=== PATIENT | female | born 1955 | race Caucasian/White ===

== ENCOUNTER → 2020-07-14 | Outpatient (CLI) | payer OTHER ==
[~2020-07-14] MED LIST: ALLERGY RELIEF180 MG PO; ASA81BEC PO; BUSPIRONE HCL15 MG PO; LOPRESSOR50 MG PO; MUCINEX600 MG PO; REMERON 30 MG T30 M1 PO; SIMVASTATIN80 MG PO; SYNTHROID125 MC1 PO; VENLAFAXINE HCL75 M1 PO
== END ==
LOC: SJCVCIMAG 09:21
PROVIDERS: ATTEND Internal Medicine Cardiovascular Disease
DX: R06.00 Dyspnea, unspecified (principal); I25.10 Atherosclerotic heart disease of native coronary artery without angina pectoris

== ENCOUNTER → 2020-07-18 | Outpatient (CLI) | payer OTHER ==
[~2020-07-18] VITALS: Ht 162.6 cm; Wt 113.4 kg
[2020-07-18 10:10] VITALS: BP 170/86
--- NOTE | 2020-07-18 13:19 | NUR ---
O2 SAT 88-89 WHEN ASLEEP. PLACED ON 2L O2 NC.
--- NOTE | 2020-07-18 14:47 | NUR ---
PT 2 HRS BEDREST OVER. SAT MORE UP IN BED, MOVING LEGS. WILL CONTINUE TO MONITOR GROIN SITE.
--- NOTE | 2020-07-18 15:25 | CATHLAB ---
[facility] [place] [address] INVASIVE PROCEDURE REPORT Name: GIOVANI NOGUERA Room #: REG CAMRYN SmithBenny#: [id number] Admission: 07/18/20 Attend Phys: Jamil Wolfe MD Discharge: Date of : 57 Report #: [id number] THIS REPORT FOR: cc: FAM - Family physician unknown NO FAMILY PHYSICIAN or PCP Jamil Wolfe MD ~ APPROVED REPORT Study performed: 07/18/2020 11:25:20 Patient Details Patient Status: Out-Patient Room #: The patient is a 64 year-old female Event Personnel Jamil Wolfe Manager Marketing Sales, Kalpana Nascimento RN RN, Ana Washburn RTR Ivana Ann Ja'net RTR Monitor Procedures Performed Left Heart Cath w/or w/o Coronaries [id number] [facility] Art Access - R femoral artery* 61177 Initial Mod Sed Same Phys/QHP Gr5y 273602 12160 Mod Sed Same Phys/QHP Ea 710480 Hemostasis with Manual pressure Indication Dyspnea, Positive stress test Risk Factors HypercholesterolemiaPhysical Activity, Coronary Artery DiseaseHypertension Previous Procedures/Diagnoses Previous PCI Procedure Narrative The patient was brought electively to the Cardiac Catheterization Laboratory and was prepped and draped in a sterile manner. The Right Groin^ was infiltrated with 1% Lidocaine subcutaneous anesthesia. A PINNACLE 4FR Sheath #[id number] sheath was inserted into the RFA^. Coronary angiography was performed using coronary diagnostic catheters. The right coronary system was accessed and visualized with a 4FR JR4 catheter. The left coronary system was accessed and visualized with a 4FR JL 5.0 #[id number] catheter. The left ventricle was accessed and visualized with a 4FR JR4 catheter. Left [facility] [address] [place] [address] INVASIVE PROCEDURE REPORT Name: GIOVANI NOGUERA Room #: REG [facility]#: [id number] Admission: 07/18/20 Attend Phys: Jamil Wolfe MD Discharge: Date of : 57 Report #: [id number] ventricular/Aortic Valve gradient assessed via catheter pullback. Left ventriculogram was performed in 30 degree projection. Hemostasis was obtained with manual pressure following sheath removal without any complications. The patient tolerated the procedure well and there were no complications associated with the procedure. There was no hematoma. Intraoperative Conscious Sedation Sedation start time: 12:04 Case end Time: 12:42 Fentanyl 100 mcg Versed 2 mg Fluoro Time: 2.50 minutes Dose: DAP 9795.70 cGycm2 1478 mGy Contrast Type and Amount: Omnipaque 130 ml Coronary Angiography The patient's coronary anatomy is right dominant. Diagnostic Cath Left Main The left main artery is a large-caliber vessel, appears angiographically normal. LAD The LAD is a moderate-sized caliber vessel with patent stents in the proximal and mid segments. Just before the proximal stent, there is a mild to moderate stenosis, 30 to 40%. The distal LAD wraps around the apex. Diagonal 1 This vessel originates from the mid segment of the LAD, patent with no flow-limiting lesions. Circumflex The left circumflex arteries a moderate-sized caliber vessel, supplies 3 OM vessels. OM1 This vessel has a high takeoff from the left circumflex artery. There is mild disease in the proximal segment. OM2 This is a moderate-sized caliber vessel with a borderline stenosis in the proximal segment, 60%. OM3 This is a small to moderate-sized caliber vessel, patent with no flow-limiting lesions. Right Coronary The RCA is a dominant vessel with at least moderate calcification in the proximal and mid segments. There are severe occlusions in the proximal mid segments, 80%. R PDA This is a moderate-sized caliber vessel, patent with no flow-limiting lesions. RPLV This is a moderate-sized caliber vessel, patent with no flow-limiting lesions. Left Ventriculography Left Ventriculography was not performed. Ejection Fraction was [address] [address] INVASIVE PROCEDURE REPORT Name: GIOVANI NOGUERA Room #: REG M.Amna.#: [id number] Admission: 07/18/20 Attend Phys: Jamil Wolfe MD Discharge: Date of : 57 Report #: [id number] >55% based off patient's Echocardiogram. An LVEDP was measured and there is no gradient across the outflow tract. Hemodynamics The aortic pressure is 150/79 mmHg with a mean of 109 mmHg. The left ventricular pressure is 153/8 mmHg with a mean of mmHg. The left ventricular end diastolic pressure is 30 mmHg. Pullback from the left ventricle to the aorta revealed no gradient across the aortic valve. Conclusion 1. There are patent stents in the LAD with mild restenosis. 2. There are severe, calcified stenoses in the RCA. Recommend staged PCI involving rotational atherectomy and stent placement. 3. There is a borderline stenosis in the second obtuse marginal artery, recommend medical therapy. 4. Recommend risk factor management and staged PCI. <ELECTRONICALLY SIGNED> By: Jamil Wolfe MD 07/18/20 1525 1525 1525 Jamil Wolfe MD /INF
== END | disposition home or self-care (01) ==
LOC: CATH 07:18
PROVIDERS: ATTEND Internal Medicine Cardiovascular Disease
DX: R94.39 Abnormal result of other cardiovascular function study (principal); R06.00 Dyspnea, unspecified; I25.10 Atherosclerotic heart disease of native coronary artery without angina pectoris; T82.855A Stenosis of coronary artery stent, initial encounter; I25.2 Old myocardial infarction; I10 Essential (primary) hypertension; E78.00 Pure hypercholesterolemia, unspecified; F17.210 Nicotine dependence, cigarettes, uncomplicated; Z98.890 Other specified postprocedural states; Z79.899 Other long term (current) drug therapy; Z79.82 Long term (current) use of aspirin; Y83.8 Other surgical procedures as the cause of abnormal reaction of the patient, or of later complication, without mention of misadventure at the time of the procedure

== ENCOUNTER 2020-09-13 09:31 | Inpatient (IN) | payer OTHER ==
[~2020-09-13] VITALS: Ht 162.6 cm; Wt 124.2 kg
[2020-09-13] VITALS (12 sets, daily range): BP systolic 128–179; BP diastolic 58–90
[2020-09-13] MEDS ORDERED: ASA81BEC PO (10:04)
[2020-09-13] MEDS ORDERED: BUSPIRONE HCL15 MG PO (10:05)
[2020-09-13] MEDS ORDERED: ALLERGY RELIEF180 MG PO (10:05)
[2020-09-13] MEDS ORDERED: SYNTHROID125 MC1 PO (10:06)
[2020-09-13] MEDS ORDERED: REMERON 30 MG T30 M1 PO (10:07)
[2020-09-13] MEDS ORDERED: LOPRESSOR50 MG PO (10:07)
[2020-09-13] MEDS ORDERED: EFFIENT10 MG PO (10:07)
[2020-09-13] MEDS ORDERED: VENLAFAXINE HCL75 M2 PO (10:08)
[2020-09-13] MEDS ORDERED: SIMVASTATIN40 MG PO (10:08)
--- NOTE | 2020-09-13 17:29 | CATHLAB ---
[facility] [place] [address] INVASIVE PROCEDURE REPORT Name: GIOVANI NOGUERA Room #: ROXANA Smith.#: [id number] Admission: 09/13/20 Attend Phys: Jamil Wolfe MD Discharge: Date of : 57 Report #: [id number] THIS REPORT FOR: cc: FAM - Family physician unknown NO FAMILY PHYSICIAN or PCP Jamil Wolfe MD ~ APPROVED REPORT Study performed: 09/13/2020 13:14:47 Patient Details Patient Status: Out-Patient Room #: The patient is a 65 year-old female Event Personnel Jamil Wolfe Patrol Agent, Ana Washburn RTR Monitor, [place] Eastman RTR, Daniele Bobo Jessica RN weatherization technician Performed Art Access - R femoral artery* 85806 Initial Mod Sed Same Phys/QHP Gr5y 407176 98579 Mod Sed Same Phys/QHP Ea 858679 Temporary Pacemaker Lead Inserted 0157230 TPI MARIBEL Place w/wo Plasty Single RCA 253663 Atherectomy w/wo Plasty Sgl RCA 1955240 ATHSINGLE Hemostasis w/ Mynx Indication Dyspnea, Positive stress test, The patient had a previous cardiac catheterization performed on July 18, 2020 revealing patent stents in the LAD. There are severe, calcified lesions in the proximal and mid segments of the RCA. She now returns for a staged PCI procedure involving rotational atherectomy and stent placement. Risk Factors Obesity, HypercholesterolemiaPhysical Activity, Coronary Artery DiseaseHypertension Previous Procedures/Diagnoses Previous PCI Procedure Narrative The Right Groin^ was infiltrated with 1% Lidocaine subcutaneous anesthesia. A PINNACLE 7FR Sheath #[id number] sheath was inserted into the RFA^. Coronary angiography was performed using coronary diagnostic catheters. Closure device was deployed with a Fr MYNXGRIP [facility] [address] [place] [address] INVASIVE PROCEDURE REPORT Name: GIOVANI NOGUERA Room #: REG [facility]#: [id number] Admission: 09/13/20 Attend Phys: Jamil Wolfe MD Discharge: Date of : 57 Report #: [id number] 6/7F #[id number]. The patient tolerated the procedure well and there were no complications associated with the procedure. There was no hematoma. Intraoperative Conscious Sedation Sedation start time: 13:50 Case end Time: 16:16 Fentanyl 200 mcg Versed 4.0 mg Fluoro Time: 56.00 minutes Dose: DAP 50659.30 cGycm2 15588 mGy Contrast Type and Amount: Omnipaque 325 ml Coronary Angiography The patient's coronary anatomy is right dominant. Diagnostic Cath Right Coronary There are severe, calcified lesions in the proximal mid segments of the RCA, 80 to 90%. Hemodynamics The aortic pressure is 154/74 mmHg with a mean of 105 mmHg. PCI Technique Lesion Percutaneous coronary intervention was performed on the Mid right coronary artery. The lesion stenosis prior to intervention was 90% with FLORIN 3 flow. A LAUNCHER 6FR AL75 #[id number] Guide Catheter was used to engage the ostium. A Luge Wire .014 x 182CM #[id number] Interventional Guidewire was used to cross the lesion. BALLOON DILATION A Balloon catheter MINI TREK OTW 2.0 X 12 #[id number] was inserted and inflated up to 14.00atm for 16seconds. Additional Inflation: 14.00atm for 11seconds. Additional Inflation: 14.00atm for 10seconds. An NC TREK 2.50mm x 15mm balloon was inserted and inflated 14 sujatha for 18 seconds. An NC TREK 2.50 x 15mm balloon was inserted and inflated 24 sujatha for 33 seconds. 16 sujatha for 18 seconds. 22 sujatha for 35 seconds. 20 sujatha for 19 seconds. 20 sujatha for 14 seconds. An NC TREK 2.75 x 12mm balloon was inserted and inflated 18 sujatha for 18 seconds. 22 sujatha for 30 seconds. 18 sujatha for 12 seconds. 18 sujatha for 12 seconds. 24 sujatha for 32 seconds. 24 sujatha for 37 seconds. STENT DEPLOYMENT A drug-eluting stent RESOLUTE MAURICE RX 3.0 X 15 #[id number] was inserted and inflated up to 18atm for 34seconds. A drug-eluting stent RESOLUTE MAURICE RX 3.0 x 22 was inserted and inflated up to 18 sujatha for [address] [address] INVASIVE PROCEDURE REPORT Name: GIOVANI NOGUERA Room #: REG AG Rich#: [id number] Admission: 09/13/20 Attend Phys: Jamil Wolfe MD Discharge: Date of : 57 Report #: [id number]. POST STENT DEPLOYMENT BALLOON DILATION A Balloon catheter TREK NC RX 3.0 X 15 #[id number] was inserted and inflated up to 22atm for 40seconds. Additional Inflation: 18atm for 20seconds. Additional Inflation: 22atm for 40seconds. An NC TREK 3.50 x 15 RX was inserted and inflated up to 22 sujatha for 47 seconds. Final angiography reveals 45 % stenosis with FLORIN 3 flow. COMMENTS A ROTAPRO 1.50 AFTAB rotablator was inserted and used approximately 10 passes. A 6 Occitan temporary pacing wire was placed through the right femoral vein into the right ventricle. The Rotablator was successfully passed through the proximal lesion and was able to pass into the mid lesion. However, it could not completely rotoblade the second portion of this mid segment stenosis of the RCA. During the PCI portion, a wilfredo wire had to be used to pass the balloon and stents into the affected area. PCI Technique Lesion 2 Percutaneous coronary intervention was performed on the proximal right coronary artery. The lesion stenosis prior to intervention was 80% with FLORIN 3 flow. A LAUNCHER 6FR AL75 #325251 Guide Catheter was used to engage the RCA ostium. Stent Deployment A drug-eluting stent 3.0 x 22mm Resolute was inserted and inflated up to 16atm for 14seconds. Post Stent Deployment Balloon Dilation A Balloon catheter TREK NC RX 3.25 X 15 #[id number] was inserted and inflated up to 18atm for 16seconds. Final angiography reveals 0 % stenosis with FLORIN 3 flow. Comments Prior to any balloon dilatation, rotational atherectomy was performed with a 1.5 mm aftab. This was successfully used in the proximal RCA lesion. Followed by incremental balloon dilatation with a 2.25, 2.5 and 2.75 mm balloons. Conclusion 1. Successful PCI involving rotational atherectomy and placement of a drug-eluting stent into the proximal RCA stenosis. [facility] [address] [place] [address] INVASIVE PROCEDURE REPORT Name: GIOVANI NOGUERA Room #: REG Luis#: [id number] Admission: 09/13/20 Attend Phys: Jamil Wolfe MD Discharge: Date of : 57 Report #: [id number] 2. PCI involving rotational atherectomy and placement of a drug-eluting stent into the mid RCA stenosis. There is a moderate residual stenosis within the stented area. Consider laser atherectomy versus surgery. 3. Recommend dual antiplatelet therapy and aggressive risk factor management. <ELECTRONICALLY SIGNED> By: Jamil Wolfe MD 09/13/201728 28 28 Jamil Wolfe MD /INF
--- NOTE | 2020-09-13 18:41 | NUR ---
PT ADMIT TO ICU AT 1800 FROM [facility]. PT WITH RIGHT FEMORAL SHEATH IN PLACE. READY TO PULL AT 1800. PLAN TO GO BACK TO [facility] TOMORROW. PT AFEBRILE, ADEQUATE UOP, NO BM. PT WAITING TO EAT UNTIL SHEATH OUT. PT HAS BEEN THOUROUGHLY UPDATED AND EDUCATED ON BODY POSITIONING OVER THE NEXT 12 HOURS. SHE IS COMPLIENT WITH THESE ORDERS. PT UPDATED AND EDUCATED ON CONDITION AND POC. PT FEMORAL DRESSING C/D/I.
--- NOTE | 2020-09-13 20:14 | NUR ---
This RN pulled the femoral sheath at 1920. Held pressure for 20 minutes and hemostasis was acheived at 1940. Gauze placed to site and transparent dressing. Continueing to check every 15 minutes now. No hematoma present, no bleeding. Pulses intact. Will continue to monitor.
[2020-09-14] VITALS (15 sets, daily range): BP systolic 103–159; BP diastolic 46–104
--- NOTE | 2020-09-14 07:12 | EKG ---
[address] [employer] [place] [address] ELECTROCARDIOGRAM REPORT Name: ROMEO NOGUERAKI Room #: 245-P ADM IN M.R.#: [id number] Admission: 09/13/20 Attend Phys: Jamil Wolfe MD Discharge: Date of : 57 Report #: [id number] [facility] Test Date: 2020-09-13 Test Time: 18:13:12 Pat Name: GIOVANI NOGUERA Department: Room: 245 Gender: F Etl [employer]form[employer] Architect: [id number] : 1955 Requested By: Jamil Wolfe Order Number: [id number] : Gen Hoffman Measurements Intervals [place] Rate: 62 P: 32 OK: 191 QRS: 45 QRSD: 102 T: 46 QT: 469 QTc: 477 Interpretive Statements Sinus rhythm Probable inferior infarct, old Baseline wander in lead(s) V6 No previous ECG available for comparison Electronically Signed On 09-14-2020 7:11:59 CDT by Gen Hoffman [email or web address] <ELECTRONICALLY SIGNED> By: Gen Hoffman MD, [facility] 09/14/20 0711 181 1813 Gen Hoffman MD, FACC /EPI
--- NOTE | 2020-09-14 08:00 | NUR ---
remains npo for return to sleep lab technician today per Dr. Wolfe. Am meds on hold. denies any cardiac signs/symptoms. up to bathroom with standby assist related to wires/monitor.
[2020-09-14 09:30] LABS: HEMATOCRIT 39.2 % (37.0-47.0); HEMOGLOBIN 13.1 gm/dL (12.0-15.0); MCH 33.2 pg (26.0-34.0); MCHC 33.4 g/dL (28.0-37.0); MCV 99.3 fL (80.0-100.0); RBC 3.95 mil/uL (4.20-5.00); RDW 16.4 % (10.5-14.5); WBC 6.4 thou/uL (4.0-11.0)
[2020-09-14 09:40] LABS: CALCIUM 8.4 mg/dL (8.5-10.1); CREATININE 1.1 mg/dL (0.6-1.0); POTASSIUM 4.8 mmol/L (3.5-5.1); TROPONIN-I 0.19 ng/mL (<0.06)
--- NOTE | 2020-09-14 12:05 | NUR ---
to cardiac cathode ray tube salvage processor with cathode ray tube salvage processor crew.
--- NOTE | 2020-09-14 14:54 | CATHLAB ---
[facility] [address] [place] [address] INVASIVE PROCEDURE REPORT Name: GIOVANI NOGUERA Room #: 245-P ADM IN M.R.#: [id number] Admission: 09/13/20 Attend Phys: Jamil Wolfe MD Discharge: Date of : 57 Report #: [id number] THIS REPORT FOR: cc: FAM - Family physician unknown FAM - Family physician unknown Jamil Wolfe MD ~ APPROVED REPORT Study performed: 09/14/2020 12:02:19 Patient Details Patient Status: In-Patient Room #: 245 The patient is a 65 year-old female Event Personnel Jamil Wolfe Graphic Coordinator, Paola Sanabria RN RN, [place] Eastman RTR, NANETTE Ann, Nick Guzmán RTR Monitor Procedures Performed Art Access - L femoral artery* Atherectomy w/wo Plasty Sgl RCA 0700020 ATHSINGLE PTCA Single Vessel RCA 9704807 PCISINGLE Hemostasis w/ Mynx 67103 Initial Mod Sed Same Phys/QHP Gr5y 469099 59903 Mod Sed Same Phys/QHP Ea 676209 Indication Dyspnea, Positive stress test, On September 13, 2020, the patient underwent a staged PCI procedure involving rotational atherectomy of 2 severe, calcified lesions in the proximal and mid segments of the LAD. 2 stents were placed within this region. However, within the mid RCA stent, there was a residual stenosis of at least 50-60%, the stent could not be fully dilated. Please see the cardiac cath report for full details. The patient returns today for laser atherectomy of this mid RCA segment. Risk Factors Obesity, HypercholesterolemiaPhysical Activity, Coronary Artery DiseaseHypertension Previous Procedures/Diagnoses Previous PCI Procedure Narrative The LEFT GROIN^ was infiltrated with 1% Lidocaine subcutaneous anesthesia. A 6FR PINNACLE sheath was inserted into the RFA^. [facility] [place] [address] INVASIVE PROCEDURE REPORT Name: GIOVANI NOGUERA Room #: [facility] ..#: [id number] Admission: 09/13/20 Attend Phys: Jamil Wolfe MD Discharge: Date of : 57 Report #: [id number] Coronary angiography was performed using coronary diagnostic catheters. The right coronary system was accessed and visualized with a LAUNCHER 6FR AL75 #[id number] catheter. Closure device was deployed with a 6 Fr MYNXGRIP 6/7F #[id number]. Hemostasis was obtained with manual pressure following sheath removal without any complications. The patient tolerated the procedure well and there were no complications associated with the procedure. There was no hematoma. Intraoperative Conscious Sedation Sedation start time: 1227 Case end Time: 1341 Fentanyl 100 mcg Versed 2 mg Fluoro Time: 10.30 minutes Dose: DAP 19001.90 cGycm2 2234 mGy Contrast Type and Amount: Visipaque 140 ml Hemodynamics The aortic pressure is 166/88 mmHg with a mean of 119 mmHg. The left ventricular pressure is 158/16 mmHg with a mean of mmHg. The left ventricular end diastolic pressure is 24 mmHg. PCI Technique Lesion Percutaneous coronary intervention was performed on the mid right coronary artery. The lesion stenosis prior to intervention was 50-70% with FLORIN flow. A LAUNCHER 6FR AL75 #[id number] Guide Catheter was used to engage the ostium. A Luge Wire .014 x 182CM #646656 Interventional Guidewire was used to cross the lesion. Final angiography reveals 0 % stenosis with FLORIN 3 flow. COMMENTS A 0.9mm xoompark Coronary Artery Laser Catheter was inserted and 7 passes were made in the midRCA. A 3.83b45kv NC Euphora balloon was inserted and inflated up to 18 sujatha for 25 sec. Additional Inflation: 18 sujatha for 11 sec. Additional Inflation: 18 sujatha for 12 sec. Conclusion 1. Successful PCI involving laser atherectomy of the mid RCA stent stenosis, followed by balloon dilatation with a noncompliant balloon. [facility] [address] [place] [address] INVASIVE PROCEDURE REPORT Name: GIOVANI NOGUERA Room #: [facility]..#: [id number] Admission: 09/13/20 Attend Phys: Jamil Wolfe MD Discharge: Date of : 57 Report #: [id number] 2. Recommend dual antiplatelet therapy and aggressive risk factor management. <ELECTRONICALLY SIGNED> By: Jamil Wolfe MD 09/14/20 1454 1454 1454 Jamil Wolfe MD /INF
[2020-09-14] MEDS ORDERED: LIPITOR40 MG PO (15:29)
--- NOTE | 2020-09-14 22:08 | NUR ---
PT TRANSFERRED TO THE UNIT FROM ICU AT APPROXIMATELY 2100. PT IS A/O X4 AND IS UP WITH SBA TO THE BR.PT IS PLEASANT AND COOPERATIVE. VSS. AFEBRILE. C/O PAIN TO LEFT GROIN. PRN PAIN MEDICATION PROVIDED DIRECTED. DRSG TO LEFT GROIN IS C/D/I. REMAINS ON 3 LITERS NC. SA ON THE MONITOR. 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 PT HAS BEEN EDUCATED ON BED CONTROLS AND CALL LIGHT. AT THIS TIME PT IS LYING IN HER BED WITH HOB ELEVATED AND APPEARS TO BE WATCHING TV. FALL PRECAUTIONS IN PLACE, CALL LIGHT IS WITHIN REACH. WILL CONTINUE TO MONITOR.
[2020-09-15 02:58] LABS: HEMATOCRIT 36.8 % (37.0-47.0); HEMOGLOBIN 12.5 gm/dL (12.0-15.0); MCH 33.7 pg (26.0-34.0); MCV 99.1 fL (80.0-100.0); RBC 3.71 mil/uL (4.20-5.00); RDW 16.2 % (10.5-14.5); WBC 7.2 thou/uL (4.0-11.0)
[2020-09-15 04:11] LABS: ALBUMIN 2.8 g/dL (3.4-5.0); CALCIUM 8.5 mg/dL (8.5-10.1); CREATININE 1.1 mg/dL (0.6-1.0); POTASSIUM 4.2 mmol/L (3.5-5.1); TOTAL BILIRUBIN 0.8 mg/dL (0.2-1.0); TOTAL PROTEIN 6.4 g/dL (6.4-8.2)
[2020-09-15 05:10] VITALS: BP 132/74
--- NOTE | 2020-09-15 07:11 | EKG ---
[address] [place] [address] ELECTROCARDIOGRAM REPORT Name: ROMEO NOGUERAKI Room #: 219-P ADM IN M.R.#: [id number] Admission: 09/13/20 Attend Phys: Jamil Wolfe MD Discharge: Date of : 57 Report #: [id number] [facility] Test Date: 2020-09-14 Test Time: 17:47:21 Pat Name: GIOVANI NOGUERA Department: Room: 219 Gender: F Hypoid Gear Tester: [id number] : 1955 Requested By: Jamil Wolfe Order Number: [id number] : Gen Hoffman Measurements Intervals [place] Rate: 76 P: 27 GA: 181 QRS: 29 QRSD: 96 T: 55 QT: 432 QTc: 486 Interpretive Statements Sinus rhythm Consider left atrial enlargement Abnormal inferior Q waves Borderline prolonged QT interval Compared to ECG 09/13/2020 18:13:12 Inferior Q waves now present Q waves now present Myocardial infarct finding no longer present Electronically Signed On 09-15-2020 7:11:13 CDT by Gen Hoffman [email or web address] <ELECTRONICALLY SIGNED> By: Gen Hoffman MD, [facility] 09/15/20710 174 46 Gen Hoffman MD, [facility] /EPI
[2020-09-15] MEDS ORDERED: LIPITOR40 MG PO (08:07)
[2020-09-15 08:10] VITALS: BP 128/84
[2020-09-15 10:01] VITALS: BP 128/84
--- NOTE | 2020-09-15 10:31 | NUR ---
DISCUSSED DC PAPERWORK WITH PATIENT. CARDIAC REHARB DC INFORMATION CURRENTLY BEING DISCUSSED. BILATERAL GROIN SITES ARE BRUSIED BUT SOFT. NO ACTIVE BLEEDING NOTED ATT. RIGHT GROIN SITE IS TENDER, LEFT IS NOT. PATIENT DC TO HOME VIA PRIVATE VEHICLE AND BEING PICKED UP BY FRIEND
--- NOTE | 2020-09-24 09:05 | HC ---
[facility] [place] [address] CONSULTATION Name: GIOVANI NOGUERA Room #: 219-P [facility] IN M.R.#: [id number] Admission: 09/13/20 Attend Phys: Jamil Wolfe MD Discharge: 09/15/20 Date of : 57 Report #: [id number] THIS REPORT FOR: cc: FAM - Family physician unknown FAM - Family physician unknown Fei Laura MD ~ DATE OF SERVICE: 09/14/2020 We were asked by Dr. Wolfe to see the patient. HISTORY OF PRESENT ILLNESS: The patient is a 65-year-old with coronary artery disease. The patient had a recent nuclear stress test that was positive. The patient denies having angina at home, but the patient does report that she was having shortness of breath with increasingly low levels of exertion. There is no history of rest pain. There is no history of shortness of breath at rest. Previously, the patient had stents placed in the coronary arteries. Recently, the patient was brought back for rotational atherectomy of the right coronary artery with 2 drug-eluting stents placed in the proximal and mid portions of the right coronary artery. The stent in the mid segment had an area that was not completely dilated due to occlusive plaque. The patient will be taken to the [facility] later today for laser atherectomy, but we were asked to see the patient for consideration of coronary artery bypass surgery should percutaneous interventions failed. PAST MEDICAL HISTORY: Significant for hypertension and hyperlipidemia. The patient denies diabetes mellitus. MEDICATIONS: At home includes aspirin, atorvastatin, Effient has been prescribed, venlafaxine, levothyroxine, metoprolol, mirtazapine, atropine. ALLERGIES: None known. SOCIAL HISTORY: The patient is a smoker and former drinker. The patient lives alone. She is . 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 REVIEW OF SYSTEMS: GENERAL: The patient denies weight change, fever, chills. EYES: Wears glasses. HEENT: Denies headaches, hearing problems, sinus problems. RESPIRATORY: No hemoptysis, no cough. CARDIAC: Denies angina. Does admit to shortness of breath with increasingly low levels of exertion. No orthopnea or nocturnal dyspnea. GASTROINTESTINAL: Denies nausea, vomiting blood. GENITOURINARY: Denies urgency, frequency, blood. [facility] [address] [place] [address] CONSULTATION Name: GIOVANI NOGUERA Room #: 219-P [facility] IN M.R.#: [id number] Admission: 09/13/20 Attend Phys: Jamil Wolfe MD Discharge: 09/15/20 Date of : 57 Report #: [id number] MUSCULOSKELETAL: No current bone or joint pains. Does have a history of multiple orthopedic issues. NEUROLOGIC: Denies motor or sensory dysfunction. SKIN: Has percutaneous injuries related to household catheterization. Otherwise, No rash or infection. PSYCH: Has been in rehab for alcohol. ENDOCRINE: Treated for hypothyroidism. Denies tremor or goiter. PHYSICAL EXAMINATION: VITAL SIGNS: Temperature 36.4, heart rate 58, blood pressure 110/57, respiratory rate 15, O2 sat 96% on 2 L. HEENT: No scleral icterus. No arcus. NECK: No mass, no bruit. CHEST: Clear to auscultation. HEART: Rhythm regular, no murmur. ABDOMEN: Soft, somewhat protuberant, centripetal obesity. EXTREMITIES: No clubbing, cyanosis or edema. VASCULAR: 2+ dorsalis pedis pulses bilaterally. MUSCULOSKELETAL: No obvious bone or joint asymmetry or deformity. NEUROLOGIC: No motor or sensory dysfunction. PSYCHIATRIC: Oriented x3. Shows insight into problem somewhat emotional, but pleasant overall. ASSESSMENT AND PLAN: The patient has coronary artery disease with currently undilatable stricture in the right coronary artery. There is other scattered disease including moderate stenoses and left anterior descending, first and second marginal arteries that would normally referred to medical management, if the right coronary were not involved. We will await the results of the laser atherectomy today, but are available to discuss eventual coronary artery bypass. The patient sent home on "triple" anticoagulation (aspirin, Effient, and Xarelto) would require an IV heparin bridge before surgery, but all of this is to be decided. It is a privilege to participate in this challenging the patient's care. Thank you for the consult. <ELECTRONICALLY SIGNED> By: Fei Laura MD 09/24/20 0905 [id number] Fei Laura MD /nt
== END 2020-09-15 11:47 | disposition home or self-care (01) | DRG 247 ==
LOC: CATH 09:31 → ICU 18:40 → 2N 09-14 21:10
PROVIDERS: ADMIT Internal Medicine Cardiovascular Disease; ATTEND Internal Medicine Cardiovascular Disease
DX: T82.855A Stenosis of coronary artery stent, initial encounter (principal); I25.10 Atherosclerotic heart disease of native coronary artery without angina pectoris; I10 Essential (primary) hypertension; E78.5 Hyperlipidemia, unspecified; E78.00 Pure hypercholesterolemia, unspecified; F41.9 Anxiety disorder, unspecified; E03.9 Hypothyroidism, unspecified; F32.9 Major depressive disorder, single episode, unspecified; F10.21 Alcohol dependence, in remission; Z87.891 Personal history of nicotine dependence; Z79.899 Other long term (current) drug therapy; Y84.0 Cardiac catheterization as the cause of abnormal reaction of the patient, or of later complication, without mention of misadventure at the time of the procedure; Y92.89 Other specified places as the place of occurrence of the external cause
CPT/HCPCS: 10078; 10081

== ENCOUNTER → 2020-12-29 | Outpatient (CLI) | payer OTHER ==
[~2020-12-29] MED LIST changes: +EFFIENT10 MG PO; +LIPITOR40 MG PO; +SIMVASTATIN40 MG PO; +VENLAFAXINE HCL75 M2 PO
== END ==
LOC: SJCVCIMAG 10:51
PROVIDERS: ATTEND Internal Medicine Cardiovascular Disease
DX: I10 Essential (primary) hypertension (principal); I25.10 Atherosclerotic heart disease of native coronary artery without angina pectoris; E78.00 Pure hypercholesterolemia, unspecified; F17.210 Nicotine dependence, cigarettes, uncomplicated; R60.9 Edema, unspecified; Z79.82 Long term (current) use of aspirin; Z79.899 Other long term (current) drug therapy; F17.200 Nicotine dependence, unspecified, uncomplicated; F32.9 Major depressive disorder, single episode, unspecified; E03.9 Hypothyroidism, unspecified; E78.5 Hyperlipidemia, unspecified; Z95.818 Presence of other cardiac implants and grafts; Z95.5 Presence of coronary angioplasty implant and graft